=== PATIENT | male | born 1960 | race Two or more races ===

== ENCOUNTER 2017-01-06 08:15 | Day surgery (SDC) | payer BC ==
[~2017-01-06] VITALS: Ht 162.6 cm; Wt 88.0 kg
[~2017-01-06 08:15] MED LIST: HYDROmorphone 2 MG/ML VIAL IV PRN; IV RINGERS,LACTATED 1000ML 1,000 ML IV SCH; LIDOCAINE 1% PF 2 ML VIAL. ID PRN; MORPHINE SULFATE 2 MG/ML DISP.SYRIN. IV PRN; MULT1CAP15 PO; ONDANSETRON PF 4 MG/2 ML VIAL. IV PRN; OXYC-323 PO; PROCHLORPERAZINE 10 MG/2 ML VIAL. IV PRN; fentaNYL PF VIAL 100 MCG/2 ML VIAL IV PRN
[2017-01-06] MEDS ORDERED: GELATIN SPONGE SIZE 100. ONE (09:08)
[2017-01-06] MEDS ORDERED: BUPIVACAINE-EPI 0.25%-1:200000 50 ML VIAL. ONE (09:08)
[2017-01-06] MEDS ORDERED: FAMOTIDINE 20 MG/2 ML VIAL ONE (09:56)
[2017-01-06] MEDS ORDERED: LIDOCAINE 2% PF Vial for OR 5 ML VIAL. ONE (09:56)
[2017-01-06] MEDS ORDERED: PROPOFOL 20 ML IV ONE (09:56)
[2017-01-06] MEDS ORDERED: ONDANSETRON PF 4 MG/2 ML VIAL. ONE (09:56)
[2017-01-06] MEDS ORDERED: MIDAZOLAM HCL/PF 2 MG/2 ML VIAL. ONE (09:56)
[2017-01-06] MEDS ORDERED: fentaNYL PF VIAL 100 MCG/2 ML VIAL ONE (09:57)
[2017-01-06] MEDS ORDERED: DEXAMETHASONE SOD PHOS 20 MG/5 ML VIAL. ONE (10:35)
[2017-01-06] MEDS ORDERED: SEVOFLURANE 16 TO 30 MINUTES. IH ONE (10:58)
--- NOTE | 2017-01-06 11:16 | DISCH ---
DISCHARGE INSTRUCTIONS Condition on Discharge Condition on Discharge: Stable Activity After Discharge Activity Instructions for Disc: Activity as tolerated, Avoid exertion Lifting Instructions after Dis: No heavy lifting Driving Instructions after Dis: Do not drive today Diet after Discharge Diet after Discharge: Regular Wound Incision Care Wound/Incision Care: Ice to area for comfort, May get incision wet Follow-Up Follow up with: Gaurav next week ERICA LASSITER MD Jan 06, 2017 11:16
--- NOTE | 2017-01-06 11:24 | PDOC ---
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
[2017-01-06] MEDS ORDERED: OXYC-323 PO (11:28)
[2017-01-06] MEDS ORDERED: SENN1TAB70 PO (11:33)
[2017-01-06] MEDS ORDERED: SENN1TAB71 PO (11:33)
--- NOTE | 2017-01-06 11:38 | OP ---
DATE OF SURGERY: 01/06/2017 PREOPERATIVE DIAGNOSIS: Perirectal abscess. 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 PROCEDURE: Exam under anesthesia was placement of a Secton. SURGEON: Erica Lassiter MD ANESTHESIA: General endotracheal. ESTIMATED BLOOD LOSS: 5 mL. INTRAVENOUS FLUIDS: 500 mL. INDICATIONS: The patient is a 56-year-old with pain and drainage in the perianal area, brought for exam under anesthesia. OPERATIVE FINDINGS: With the patient in the probe position, there was a fistulous tract that was probed beginning at 7:00 and extending into the anterior midline in the anal canal. It resided deep to the sphincter musculature. OPERATIVE REPORT: The patient brought to the operating suite, given general endotracheal anesthetic, placed in the prone position, buttocks taped apart and the area prepped and draped in usual sterile fashion. A 0.25% Marcaine with epinephrine was infiltrated circumanally for postoperative analgesia. The draining site on the buttocks was gently probed and the tract led to the anterior midline in the anal canal. A looped 0 silk stitch was passed through the tract and tied loosely as a Seton. Gelfoam pack placed in the anal canal. Sterile dressing applied. The patient taken out of the probe position, awakened from his anesthetic and taken to the recovery room in satisfactory condition. ERICA LASSITER MD DR: JOSE/susan JOB#: [id number] / [id number]
[2017-01-06] MEDS ORDERED: HYDROcodone/APAP 5/325MG 1 TAB TABLET PO PRN (11:45)
[2017-01-06 12:17] VITALS: BP 135/86
--- NOTE | 2017-01-07 14:44 | PATHOLOGY ---
PATHOLOGY REPORT * * * * * * * * FINAL DIAGNOSIS: Skin and subcutaneous tissue, anal region: - Fistula lined by acute and chronically inflamed granulation tissue. COMMENT: There is no evidence of malignancy. (JOAQUINM:vanita; 01/07/2017) REPORT ELECTRONICALLY SIGNED BY: Mat Laird M.D. DATE/TIME: 01/07/2017 14:43 * * * * * * * * GROSS PATHOLOGY: The specimen is received in formalin, labeled "Mitchell Kamara, fistula in ano" and consists of a firm and elliptical portion of brown to red tissue measuring 1.7 x 1.1 x 1.0 cm. The specimen is inked and sectioning reveals dense red-pink and bello cut surfaces. Totally submitted as A1. (ALEX; 01/06/2017) INITIAL CPT CODE(S): A; 85442 Professional services performed [place] [facility] [place] [address] Technical services performed by [facility] at [address] [place] [address], [facility], [place] [address] [address]. SPECIMEN(S) RECEIVED: A.Fistula in ano CLINICAL HISTORY: Serena-anal abscess PATIENT: MITCHELL KAMARA /AGE: 204/16/1960 (Age: 56) PATIENT #: [id number] ALT CASE #: SPECIMEN COLLECTION DATE: 01/06/2017 SPECIMEN RECEIVED DATE: 01/06/2017 [facility] - [address] [place] [address] - PHONE: [phone] * * * END OF REPORT * * *
== END 2017-01-06 12:56 | disposition home or self-care (01) ==
LOC: SURG 08:15
PROVIDERS: ATTEND Surgery
DX: K61.1 Rectal abscess (principal); E66.9 Obesity, unspecified; Z68.33 Body mass index [BMI] 33.0-33.9, adult; Z87.39 Personal history of other diseases of the musculoskeletal system and connective tissue; Z72.89 Other problems related to lifestyle
CPT/HCPCS: 46020; C1769; J0690; J1100; J2250; J2405; J2704; J3010; S0028; 88304; J2001

== ENCOUNTER 2017-06-08 09:38 | Day surgery (SDC) | payer BC ==
[~2017-06-08 09:38] MED LIST changes: +BUPIVAC MPF-EPI 0.5%-1:200000 30 ML VIAL. INJ; +GELATIN SPONGE SIZE 100.; -HYDROmorphone 2 MG/ML VIAL IV PRN; -IV RINGERS,LACTATED 1000ML 1,000 ML IV SCH; -LIDOCAINE 1% PF 2 ML VIAL. ID PRN; -MORPHINE SULFATE 2 MG/ML DISP.SYRIN. IV PRN; -MULT1CAP15 PO; -ONDANSETRON PF 4 MG/2 ML VIAL. IV PRN; -OXYC-323 PO; -PROCHLORPERAZINE 10 MG/2 ML VIAL. IV PRN; -fentaNYL PF VIAL 100 MCG/2 ML VIAL IV PRN
[2017-06-08] MEDS ORDERED: DEXAMETHASONE SOD PHOS 20 MG/5 ML VIAL. ×2 (10:24)
[2017-06-08] MEDS ORDERED: PROPOFOL 20 ML IV ×2 (10:24)
[2017-06-08] MEDS ORDERED: ONDANSETRON PF 4 MG/2 ML VIAL. ×2 (10:24)
[2017-06-08] MEDS ORDERED: ROCURONIUM 50 MG/5 ML VIAL. ×2 (10:24)
[2017-06-08] MEDS ORDERED: fentaNYL PF VIAL 100 MCG/2 ML VIAL ×4 (10:24→11:30)
[2017-06-08 10:52] LABS: ADD MAN DIFF? NO
[2017-06-08] MEDS ORDERED: MIDAZOLAM HCL/PF 2 MG/2 ML VIAL. ×2 (10:59)
[2017-06-08 11:00] LABS: BASO % 1 % (0-3); EOS # 0.1 x10^3/uL (0.0-0.7); EOS % 3 % (0-3); HEMATOCRIT 48.1 % (39.0-53.0); HEMOGLOBIN 16.6 g/dL (13.0-17.5); LYMPH # 1.3 x10^3/uL (1.0-4.8); LYMPH % 24 % (24-48); MEAN CORPUSCULAR HEMOGLOBIN 31 pg (25-35); MEAN CORPUSCULAR HGB CONC 35 g/dL (31-37); MEAN CORPUSCULAR VOLUME 91 fL (79-100); MONO # 0.7 x10^3/uL (0.0-1.1); MONO % 13 % (0-9); NEUT # 3.2 x10^3uL (1.8-7.7); NEUT % 60 % (31-73); PLATELET COUNT 144 x10^3/uL (140-400); RED BLOOD COUNT 5.31 x10^6/uL (4.30-5.70); RED CELL DISTRIBUTION WIDTH 13.3 % (11.5-14.5); WHITE BLOOD COUNT 5.3 x10^3/uL (4.0-11.0)
[2017-06-08 11:08] LABS: ALBUMIN 3.9 g/dL (3.4-5.0); ANION GAP 9 (6-14); BLOOD UREA NITROGEN 23 mg/dL (8-26); CALCIUM 9.1 mg/dL (8.5-10.1); CARBON DIOXIDE 26 mmol/L (21-32); CHLORIDE 103 mmol/L (98-107); CREATININE 1.2 mg/dL (0.7-1.3); GFR 62.9; GLUCOSE 99 mg/dL (70-99); POTASSIUM 3.9 mmol/L (3.5-5.1); SODIUM 138 mmol/L (136-145)
[2017-06-08] MEDS: IV RINGERS,LACTATED 1000ML 1,000 ML IV ×2 (11:20)
[2017-06-08] MEDS ORDERED: NEOSTIGMINE 10 MG/10 ML VIAL. ×2 (11:36)
[2017-06-08] MEDS ORDERED: GLYCOPYRROLATE 1 MG/5 ML VIAL. ×2 (11:36)
[2017-06-08] MEDS ORDERED: SEVOFLURANE 31 TO 60 MINUTES. IH ×2 (11:39)
[2017-06-08] MEDS: BUPIVAC MPF-EPI 0.5%-1:200000 30 ML VIAL. ×2 (12:02)
[2017-06-08] MEDS ORDERED: LIDOCAINE 1% PF 2 ML VIAL. ID ×2 (12:30)
[2017-06-08] MEDS ORDERED: PROCHLORPERAZINE 10 MG/2 ML VIAL. IV ×2 (12:30)
[2017-06-08] MEDS ORDERED: ONDANSETRON PF 4 MG/2 ML VIAL. IV ×2 (12:30)
[2017-06-08] MEDS ORDERED: MORPHINE SULFATE 4 MG/ML DISP.SYRIN. IV ×2 (12:30)
[2017-06-08] MEDS ORDERED: fentaNYL PF VIAL 100 MCG/2 ML VIAL IV ×4 (12:30)
[2017-06-08] MEDS: oxyCODONE/APAP 5/325 1 TAB TABLET PO ×2 (12:50)
== END 2017-06-08 13:45 | disposition home or self-care (01) ==
LOC: SURG 09:38
DX: E66.9 Obesity, unspecified (principal); K60.3 Anal fistula (principal); Z68.31 Body mass index [BMI] 31.0-31.9, adult; F10.99 Alcohol use, unspecified with unspecified alcohol-induced disorder
CPT/HCPCS: 36415; 80048; 82040; 85025; 88304; C1769; J1100; J2250; J2405; J2704; J2710; J3010; J3490